=== PATIENT | female | born 1980 | race Caucasian/White ===

== ENCOUNTER → 2017-10-26 | Outpatient (CLI) | payer OTHER ==
--- NOTE | 2017-11-05 10:44 | MR ---
EXAMINATION TYPE: MR pituitary wo/w con DATE OF EXAM: 10/26/2017 COMPARISON: Outside brain MRI January 24, 2014 HISTORY: Mass TECHNIQUE: Multiplanar, multisequence images of the brain and brainstem is performed without and with IV contras t, utilizing 10 mL intravenous Gadavist . Pituitary gland protocol. FINDINGS: Pituitary gland is not suspiciously enlarged in sella turcica. There is slightly prominent concave superior margin redemonstrated. The pituitary stalk shows normal enhancement in the midline. Postcontrast images show fairly heterogeneous enhancement without area of nonenhancement to suggest m icroadenoma. Craniocervical junction is unremarkable. No gross hydrocephalus is seen. Normal vascular flow voids a re identified. IMPRESSION: No convincing MRI evidence for pituitary micro or macroadenoma. No significant change fro m prior.
== END | disposition home or self-care (01) ==
LOC: RADMRIMAIN 08:48
PROVIDERS: ATTEND Family Medicine
DX: R22.0 Localized swelling, mass and lump, head (principal)
CPT/HCPCS: 70553; A9581

== ENCOUNTER → 2018-01-01 | Outpatient (CLI) | payer OTHER ==
--- NOTE | 2018-01-01 15:20 | US ---
EXAMINATION TYPE: US pelvis complete transvag DATE OF EXAM: 01/01/2018 COMPARISON: US 2016 CLINICAL HISTORY: Pelvic Pain R10.2. Pelvic pain x couple weeks, 2, para 2, history of c-sect ion TECHNIQUE: . Transabdominal sonographic images of the pelvis were acquired. Transvaginal sonographi c images were medically necessary to better assess the following anatomy: left ovary Date of LMP: 12/15/2017 EXAM MEASUREMENTS: Uterus: 12.1 x 5.3 x 5.4 cm Endometrial Stripe: 0.9 cm Right Ovary: 4.0 x 2.6 x 2.8 cm Left Ovary: not seen Difficult and limited transvaginal images due to uterus size and position and overlying bowel gas 1. Uterus: retroverted, enlarged, heterogeneous, multiple nabothian cysts 2. Endometrium: wnl for patient's LMP 3. Right Ovary: wnl 4. Left Ovary: not seen due to overlying bowel gas 5. Bilateral Adnexa: wnl 6. Posterior cul-de-sac: wnl IMPRESSION: 1. Uterus is enlarged however distinct mass is not appreciated.
== END | disposition home or self-care (01) ==
LOC: RADUSWWP 14:09
PROVIDERS: ATTEND Obstetrics & Gynecology
DX: R10.2 Pelvic and perineal pain (principal)
CPT/HCPCS: 76830; 76856

== ENCOUNTER 2018-04-25 13:04 | Emergency (ER) | payer OTHER ==
[2018-04-25] MEDS ORDERED: SODIUM CHLORIDE 0.9% 1,000 ML IV STA (14:07)
--- NOTE | 2018-04-25 14:25 | ED ---
Abdominal Pain HPI - General Chief Complaint: Abdominal Pain Stated Complaint: RUQ pain Time Seen by Provider: 04/25/18 13:49 Source: patient, RN notes reviewed, old records reviewed Mode of arrival: ambulatory Limitations: no limitations - History of Present Illness Initial Comments: 37-year-old female presents research it went of right-sided abdominal pain epigastric and more belching or the past 2 weeks. Prior to that she's been having more diarrhea. Today in this week the pain seems to be worse. Patient states that she has had no chest pain or shortness of breath. No changes in urination. - Related Data Home Medications Medication Instructions Recorded Confirmed Ibuprofen [Motrin] 800 mg PO Q6H PRN 04/25/18 04/25/18 Kariva 1 tab PO DAILY 04/25/18 04/25/18 Triamcinolone 0.1% Cream [Kenalog] 1 applicatio TOPICAL BID PRN 04/25/18 Previous Rx's Medication Instructions Recorded Famotidine [Pepcid] 20 mg PO HS #20 tablet 04/25/18 Allergies Allergy/AdvReac Type Severity Reaction Status Date / Time ciprofloxacin [From Cipro] Allergy Unknown Verified 04/25/18 14:14 Penicillins Allergy Nausea & Verified 04/25/18 14:14 Vomiting & Diarrhea prednisone Allergy Unknown Verified 04/25/18 14:14 Sulfa (Sulfonamide Allergy Rash/Hives Verified 04/25/18 14:14 Antibiotics) Review of Systems ROS Statement: Those systems with pertinent positive or pertinent negative responses have been documented in the HPI. ROS Other: All systems not noted in ROS Statement are negative. Past Medical History Additional Past Medical History / Comment(s): connective tissue disorder, pituitary mass, chronic back pain History of Any Multi-Drug Resistant Organisms: None Reported Past Surgical History: Section Past Psychological History: No Psychological Hx Reported Smoking Status: Never smoker Past Alcohol Use History: None Reported Past Drug Use History: None Reported General Exam - General Exam Comments Initial Comments: Well appearing 37 year old female no distress. Limitations: no limitations Head exam: Present: atraumatic, normocephalic, normal inspection ENT exam: Present: normal exam, mucous membranes moist Neck exam: Present: normal inspection. Absent: tenderness, meningismus, lymphadenopathy Respiratory exam: Present: normal lung sounds bilaterally. Absent: respiratory distress, wheezes, rales, rhonchi, stridor Cardiovascular Exam: Present: regular rate, normal rhythm, normal heart sounds. Absent: systolic murmur, diastolic murmur, rubs, gallop, clicks GI/Abdominal exam: Present: soft, tenderness (RUQ tenderness), normal bowel sounds. Absent: distended, guarding, rebound, rigid Extremities exam: Present: normal inspection, full ROM, normal capillary refill. Absent: tenderness, pedal edema, joint swelling, calf tenderness Back exam: Present: normal inspection Neurological exam: Present: alert, oriented X3, CN II-XII intact Psychiatric exam: Present: normal affect, normal mood Course Vital Signs 04/25/18 04/25/18 04/25/18 13:24 15:51 16:54 Temperature 98.2 F 98.5 F Pulse Rate 77 68 77 Respiratory 20 16 16 Rate Blood Pressure 139/84 131/77 142/86 O2 Sat by Pulse 96 98 97 Oximetry - Reevaluation(s) Reevaluation #1: 04/25/18 15:47 Informed of the normal lab results besides hematuria. Discussed concern for kidney stone. CT abdomen and pelvis will be completed. She continues to refuse pain medication. Medical Decision Making - Medical Decision Making 37-year-old female presents research it went of right-sided abdominal pain epigastric and more belching or the past 2 weeks. Prior to that she's been having more diarrhea. PAtient was given fluids and lab work, she refused pain medication. Labs were showing hematuria, no LFT changes. Normal amylase and lipase. Gall bladder US is negative. Concern for hematuria, if paient pain is related to nephrolithiasis. Patient underwent CT abdomen and pelvis without contrast, negative for acute disease. At this time I believe patient pain may still be gallbladder related, and she may need a HIDA scan. Discussed PCP and GI follow up. - Lab Data Result diagrams: 04/25/18 13:45 04/25/18 13:45 Lab Results 04/25/18 04/25/18 04/25/18 Range/Units 13:45 13:45 13:45 WBC 5.7 (3.8-10.6) k/uL RBC 4.89 (3.80-5.40) m/uL Hgb 14.9 (11.4-16.0) gm/dL Hct 43.1 (34.0-46.0) % MCV 88.3 (80.0-100.0) fL MCH 30.5 (25.0-35.0) pg MCHC 34.5 (31.0-37.0) g/dL RDW 12.7 (11.5-15.5) % Plt Count 311 (150-450) k/uL Neutrophils % 69 % Lymphocytes % 21 % Monocytes % 6 % Eosinophils % 2 % Basophils % 1 % Neutrophils # 3.9 (1.3-7.7) k/uL Lymphocytes # 1.2 (1.0-4.8) k/uL Monocytes # 0.3 (0-1.0) k/uL Eosinophils # 0.1 (0-0.7) k/uL Basophils # 0.0 (0-0.2) k/uL PT 9.7 (9.0-12.0) sec INR 1.0 (<1.2) APTT 22.2 (22.0-30.0) sec Sodium 141 (137-145) mmol/L Potassium 4.0 (3.5-5.1) mmol/L Chloride 108 H (98-107) mmol/L Carbon Dioxide 20 L (22-30) mmol/L Anion Gap 13 mmol/L BUN 10 (7-17) mg/dL Creatinine 0.75 (0.52-1.04) mg/dL Est GFR (CKD-EPI)AfAm >90 (>60 ml/min/1.73 sqM) Est GFR (CKD-EPI)NonAf >90 (>60 ml/min/1.73 sqM) Glucose 93 (74-99) mg/dL Calcium 10.0 (8.4-10.2) mg/dL Total Bilirubin 0.3 (0.2-1.3) mg/dL AST 18 (14-36) U/L ALT 26 (9-52) U/L Alkaline Phosphatase 56 (38-126) U/L Total Protein 7.2 (6.3-8.2) g/dL Albumin 4.4 (3.5-5.0) g/dL Amylase 70 (30-110) U/L Lipase 153 (23-300) U/L Urine Color Urine Appearance (Clear) Urine pH (5.0-8.0) Ur Specific [place] (1.001-1.035) Urine Protein (Negative) Urine Glucose (UA) (Negative) Urine Ketones (Negative) Urine Blood (Negative) Urine Nitrite (Negative) Urine Bilirubin (Negative) Urine Urobilinogen (<2.0) mg/dL Ur Leukocyte Esterase (Negative) Urine RBC (0-5) /hpf Urine WBC (0-5) /hpf Ur Squamous Epith Cells (0-4) /hpf Urine Bacteria (None) /hpf Urine Mucus (None) /hpf 04/25/18 Range/Units 13:46 WBC (3.8-10.6) k/uL RBC (3.80-5.40) m/uL Hgb (11.4-16.0) gm/dL Hct (34.0-46.0) % MCV (80.0-100.0) fL MCH (25.0-35.0) pg MCHC (31.0-37.0) g/dL RDW (11.5-15.5) % Plt Count (150-450) k/uL Neutrophils % % Lymphocytes % % Monocytes % % Eosinophils % % Basophils % % Neutrophils # (1.3-7.7) k/uL Lymphocytes # (1.0-4.8) k/uL Monocytes # (0-1.0) k/uL Eosinophils # (0-0.7) k/uL Basophils # (0-0.2) k/uL PT (9.0-12.0) sec INR (<1.2) APTT (22.0-30.0) sec Sodium (137-145) mmol/L Potassium (3.5-5.1) mmol/L Chloride (98-107) mmol/L Carbon Dioxide (22-30) mmol/L Anion Gap mmol/L BUN (7-17) mg/dL Creatinine (0.52-1.04) mg/dL Est GFR (CKD-EPI)AfAm (>60 ml/min/1.73 sqM) Est GFR (CKD-EPI)NonAf (>60 ml/min/1.73 sqM) Glucose (74-99) mg/dL Calcium (8.4-10.2) mg/dL Total Bilirubin (0.2-1.3) mg/dL AST (14-36) U/L ALT (9-52) U/L Alkaline Phosphatase (38-126) U/L Total Protein (6.3-8.2) g/dL Albumin (3.5-5.0) g/dL Amylase (30-110) U/L Lipase (23-300) U/L Urine Color Light Yellow Urine Appearance Clear (Clear) Urine pH 6.0 (5.0-8.0) Ur Specific [place] 1.012 (1.001-1.035) Urine Protein Negative (Negative) Urine Glucose (UA) Negative (Negative) Urine Ketones Negative (Negative) Urine Blood Trace H (Negative) Urine Nitrite Negative (Negative) Urine Bilirubin Negative (Negative) Urine Urobilinogen <2.0 (<2.0) mg/dL Ur Leukocyte Esterase Negative (Negative) Urine RBC 3 (0-5) /hpf Urine WBC 2 (0-5) /hpf Ur Squamous Epith Cells 1 (0-4) /hpf Urine Bacteria Occasional H (None) /hpf Urine Mucus Rare H (None) /hpf - Radiology Data Radiology results: report reviewed No renal stones or hydronephrosis seen bilaterally. I can't trust study shows no signs or to account for patient symptoms. US gallbladder and liver are negative for acute disease. Disposition Clinical Impression: RUQ pain, Microscopic hematuria Disposition: HOME SELF-CARE Condition: Good Instructions: Abdominal Pain (ED) Additional Instructions: Patient advised follow-up with primary care provider and GI specialist. Return to emergency department if any alarming signs or symptoms occur. Prescriptions: Famotidine [Pepcid] 20 mg PO HS #20 tablet Is patient prescribed a controlled substance at d/c from ED?: No When asked, does pt state using other controlled substances?: No If prescribed controlled substance>3 days was MAPS reviewed?: No If opioid is for acute pain is fill amount 7 days or less?: No If Rx opioid, was Start Talking consent form obtained?: No Referrals: Theo Garrett MD [STAFF PHYSICIAN] - 1-2 days None,Stated [Primary Care Provider] - 1-2 days Ludmila Ayala MD [STAFF PHYSICIAN] - 1-2 days Time of Disposition: 16:42
[2018-04-25 14:41] LABS: Basophils % (A) 1 %; Eosinophils # (A) 0.1 k/uL (0-0.7); Eosinophils % (A) 2 %; HCT 43.1 % (34.0-46.0); HGB 14.9 gm/dL (11.4-16.0); Lymphocytes # (A) 1.2 k/uL (1.0-4.8); Lymphocytes % (A) 21 %; MCH 30.5 pg (25.0-35.0); MCHC 34.5 g/dL (31.0-37.0); MCV 88.3 fL (80.0-100.0); Mean Platelet Volume 6.9; Monocytes # (A) 0.3 k/uL (0-1.0); Monocytes % (A) 6 %; Neutrophils # (A) 3.9 k/uL (1.3-7.7); Neutrophils % (A) 69 %; Platelet Count 311 k/uL (150-450); RBC 4.89 m/uL (3.80-5.40); RDW 12.7 % (11.5-15.5); WBC 5.7 k/uL (3.8-10.6)
[2018-04-25 14:44] LABS: Appearance,Urine Clear (Clear); Bacteria,Urine Occasional /hpf; Bilirubin,Urine Negative (Negative); Blood,Urine Trace (Negative); Color,Urine Light Yellow; Glucose,Urine (UA) Negative (Negative); Ketones,Urine Negative (Negative); Leukocyte Esterase,Urine Negative (Negative); Mucus,Urine Rare /hpf; Nitrite,Urine Negative (Negative); Protein,Urine Negative (Negative); RBC,Urine 3 /hpf (0-5); Specific Gravity,Urine 1.012 (1.001-1.035); Squamous Epithelial Cell,Urine 1 /hpf (0-4); Urobilinogen,Urine <2.0 mg/dL (<2.0); WBC,Urine 2 /hpf (0-5)
[2018-04-25 14:53] LABS: ALT 26 U/L (9-52); AST 18 U/L (14-36); Albumin 4.4 g/dL (3.5-5.0); Alkaline Phosphatase 56 U/L (38-126); Amylase 70 U/L (30-110); Anion Gap 13 mmol/L; Blood Urea Nitrogen 10 mg/dL (7-17); Carbon Dioxide 20 mmol/L (22-30); Chloride 108 mmol/L (98-107); Glucose 93 mg/dL (74-99); Lipase 153 U/L (23-300); Partial Thromboplastin Time 22.2 sec (22.0-30.0); Prothrombin Time 9.7 sec (9.0-12.0); Sodium 141 mmol/L (137-145); Total Bilirubin 0.3 mg/dL (0.2-1.3); Total Protein 7.2 g/dL (6.3-8.2)
--- NOTE | 2018-04-25 15:08 | US ---
EXAMINATION TYPE: US gallbladder DATE OF EXAM: 04/25/2018 COMPARISON: NONE CLINICAL HISTORY: Pain. Right upper back pain x 1 week, diarrhea EXAM MEASUREMENTS: Liver Length: 14.8 cm Gallbladder Wall: 0.3 cm CBD: 0.5 cm Right Kidney: 10.5 x 4.8 x 5.6 cm Pancreas: obscured by overlying midline bowel gas Liver: wnl Gallbladder: May be mildly contracted (patient NPO less than 5 hours), wall measures in upper limits of normal, no stones seen. Evidence for sonographic Infante's sign: yes CBD: visualized portions wnl, limited by overlying bowel gas Right Kidney: wnl IMPRESSION: 1. Right upper quadrant ultrasound is within normal limits.
[2018-04-25 15:52] VITALS: RESP 16
--- NOTE | 2018-04-25 16:31 | CT ---
EXAMINATION TYPE: CT abdomen pelvis wo con DATE OF EXAM: 04/25/2018 HISTORY: Pain under right ribs x [address] DLP: 1061 mGycm. Automated Exposure Control for Dose Reduction was Utilized. TECHNIQUE: CT scan of the abdomen and pelvis is performed without oral or IV contrast. COMPARISON: Same day gallbladder ultrasound FINDINGS: Within the limitations of a non-contrast study, the following observations are made. LUNG BASES: Is patchy bibasilar linear scarring and/or atelectasis posteriorly in both bases. LIVER/GB: No significant abnormality is appreciated. PANCREAS: No significant abnormality is seen. SPLEEN: No significant abnormality is seen. ADRENALS: No significant abnormality is seen. KIDNEYS: No renal stones or hydronephrosis is present bilaterally. BOWEL: Normal-appearing appendix is seen from cecum. GENITAL ORGANS: Anteverted uterus is seen. Both ovaries are normal in size. LYMPH NODES: No greater than 1cm abdominal or pelvic lymph nodes are appreciated. OSSEOUS STRUCTURES: No significant abnormality is seen. OTHER: No significant additional abnormality is seen. IMPRESSION: No renal stones or hydronephrosis is seen bilaterally. No acute finding identified on non contrast study to account for patient's symptoms.
[2018-04-25 16:54] VITALS: BP 142/86; PULSE 77; TEMP 98.5
== END 2018-04-25 16:59 | disposition home or self-care (01) ==
LOC: EC 13:04
DX: R31.29 Other microscopic hematuria (principal); R10.11 Right upper quadrant pain; R10.13 Epigastric pain; R19.7 Diarrhea, unspecified; Z79.3 Long term (current) use of hormonal contraceptives; Z88.0 Allergy status to penicillin; Z88.1 Allergy status to other antibiotic agents; Z88.2 Allergy status to sulfonamides; Z88.8 Allergy status to other drugs, medicaments and biological substances
CPT/HCPCS: 36415; 74176; 76705; 80053; 81001; 82150; 83690; 85025; 85610; 85730; 87086; 96360; 96361; 99284

== ENCOUNTER → 2018-07-24 | Outpatient (CLI) | payer OTHER ==
[2018-07-24 17:52] LABS: Appearance,Urine Clear (Clear); Bacteria,Urine Rare /hpf; Bilirubin,Urine Negative (Negative); Blood,Urine Small (Negative); Color,Urine Yellow; Glucose,Urine (UA) Negative (Negative); Ketones,Urine Negative (Negative); Leukocyte Esterase,Urine Negative (Negative); Mucus,Urine Rare /hpf; Nitrite,Urine Negative (Negative); Protein,Urine Negative (Negative); RBC,Urine 2 /hpf (0-5); Specific Gravity,Urine 1.019 (1.001-1.035); Squamous Epithelial Cell,Urine 1 /hpf (0-4); Urobilinogen,Urine <2.0 mg/dL (<2.0); WBC,Urine 3 /hpf (0-5)
== END | disposition home or self-care (01) ==
LOC: LABWHC1 16:46
PROVIDERS: ATTEND Obstetrics & Gynecology
DX: R30.0 Dysuria (principal)
CPT/HCPCS: 81001; 87086

== ENCOUNTER → 2018-11-28 | Outpatient (CLI) | payer OTHER ==
[2018-11-28 11:33] LABS: Basophils % (A) 1 %; Eosinophils # (A) 0.1 k/uL (0-0.7); Eosinophils % (A) 1 %; HCT 44.7 % (34.0-46.0); HGB 14.8 gm/dL (11.4-16.0); Lymphocytes # (A) 1.2 k/uL (1.0-4.8); Lymphocytes % (A) 24 %; MCH 30.3 pg (25.0-35.0); MCHC 33.1 g/dL (31.0-37.0); MCV 91.5 fL (80.0-100.0); Mean Platelet Volume 6.8; Monocytes # (A) 0.2 k/uL (0-1.0); Monocytes % (A) 4 %; Neutrophils # (A) 3.5 k/uL (1.3-7.7); Neutrophils % (A) 68 %; Platelet Count 290 k/uL (150-450); RBC 4.89 m/uL (3.80-5.40); RDW 12.9 % (11.5-15.5); WBC 5.2 k/uL (3.8-10.6)
[2018-11-28 16:14] LABS: Albumin 4.5 g/dL (3.80-4.90); Albumin/Globulin Ratio 1.73 (1.20-2.10); Anion Gap 10.3 mmol/L (4.00-12.00); C Reactive Protein 2.4 mg/dL (0.0-0.8); Carbon Dioxide 23.7 mmol/L (21.6-31.8); Globulin 2.6 g/dL (1.6-3.3); Potassium 4.3 mmol/L (3.5-5.5); Total Bilirubin 0.4 mg/dL (0.3-1.2); Total Protein 7.1 g/dL (6.2-8.2)
== END ==
LOC: LABWHC1 10:40
PROVIDERS: ATTEND Family Medicine
DX: Z00.00 Encounter for general adult medical examination without abnormal findings (principal); F43.10 Post-traumatic stress disorder, unspecified; R10.84 Generalized abdominal pain
CPT/HCPCS: 36415; 80053; 80061; 82306; 84443; 85025; 86140

== ENCOUNTER → 2018-12-12 | Outpatient (CLI) | payer OTHER ==
--- NOTE | 2018-12-15 13:34 | MM ---
Reason for exam: screening (asymptomatic). Last mammogram was performed 3 years and 2 months ago. Physical Findings: A clinical breast exam by your physician is recommended on an annual basis and results should be correlated with mammographic findings. MG 3D Screening Mammo W/Cad Bilateral CC and MLO view(s) were taken. Prior study comparison: October 18, 2015, bilateral MG 3d diag mammo w/cad [facility]. The breast tissue is heterogeneously dense. This may lower the sensitivity of mammography. Stable benign calcifications. There is no discrete abnormality. No significant changes when compared with prior studies. ASSESSMENT: Benign, BI-RAD 2 RECOMMENDATION: Routine screening mammogram of both breasts in 1 year.
== END ==
LOC: RADMAMWWP 12:00
PROVIDERS: ATTEND Family Medicine
DX: Z12.31 Encounter for screening mammogram for malignant neoplasm of breast (principal)
CPT/HCPCS: 77063; 77067

== ENCOUNTER → 2018-12-12 | Outpatient (CLI) | payer OTHER ==
--- NOTE | 2018-12-12 12:37 | FL ---
EXAMINATION TYPE: FL UGI w esophagus DATE OF EXAM: 12/12/2018 COMPARISON: CT abdomen and pelvis dated 04/25/2018 HISTORY: Abdominal pain for 2 to 3 months. Pain occurs both immediately after eating sometimes 2 to 4 hours after eating. TECHNIQUE: A double contrast UGI study is performed. 2 minutes and 9 seconds of fluoroscopy time was utilized with 55 fluoroscopic images saved. 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 The esophagus shows normal motility and emptying into the stomach. No evidence of hiatal hernia or s tricture noted. The stomach shows normal distensibility, peristalsis, and mucosal folds. No evidence of any mass or ulcer disease. Mild gastroesophageal reflux was seen during real time performance of this study to th e level of distal third of the esophagus. The duodenal bulb, sweep, and proximal small bowel loops are unremarkable. IMPRESSION: 1. Mild degree gastroesophageal reflux to the level of the distal third of the esophagus. 2. No radiographic evidence of gastritis, duodenitis, gastric ulcer, nor duodenal ulcer.
== END | disposition home or self-care (01) ==
LOC: RADFLWHC 11:03
PROVIDERS: ATTEND Family Medicine
DX: K21.9 Gastro-esophageal reflux disease without esophagitis (principal); R10.84 Generalized abdominal pain
CPT/HCPCS: 74240

== ENCOUNTER 2019-01-15 18:13 | Emergency (ER) | payer OTHER ==
[2019-01-15 18:35] VITALS: BP 146/94; RESP 18; TEMP 98.4
[2019-01-15] MEDS ORDERED: IPRATROPIUM-ALBUTEROL 3 ML NEB INHALATION STA (18:40)
--- NOTE | 2019-01-15 19:07 | XR ---
EXAMINATION TYPE: XR chest 2V DATE OF EXAM: 01/15/2019 COMPARISON: NONE HISTORY: Cough and congestion TECHNIQUE: Frontal and lateral views of the chest are obtained. FINDINGS: Heart and mediastinum are normal. Lungs are clear. Diaphragm is normal. Bony thorax appear s normal. IMPRESSION: Normal chest
[2019-01-15 19:15] VITALS: PULSE 96
--- NOTE | 2019-01-15 19:16 | ED ---
URI HPI - General Chief Complaint: Upper Respiratory Infection Stated Complaint: flu/SOB Time Seen by Provider: 01/15/19 18:28 Source: patient, RN notes reviewed Mode of arrival: ambulatory Limitations: no limitations - History of Present Illness Initial Comments: 38-year-old female presents emergency Department chief complaint cough congestion shortness breath. Patient states she has not felt well for last few days still weak. Patient states she is achy. Patient concerned she may have pneumonia as she has had a history. Patient reports fever intermittently. No recent Tylenol Motrin. Patient does have underlying asthma. Patient denies chest pain, headache, dizziness, neck pain, neck stiffness. Patient's had no recent nausea vomiting diarrhea constipation. - Related Data Home Medications Medication Instructions Recorded Confirmed Ibuprofen [Motrin] 800 mg PO Q6H PRN 04/25/18 01/15/19 Kariva 1 tab PO DAILY 04/25/18 01/15/19 Albuterol Nebulized [Ventolin 2.5 mg INHALATION RT-Q6H PRN 01/15/19 01/15/19 Nebulized] Ergocalciferol [Vitamin D2] 50,000 unit PO Q30D 01/15/19 01/15/19 Allergies Allergy/AdvReac Type Severity Reaction Status Date / Time ciprofloxacin [From Cipro] Allergy Unknown Verified 01/15/19 18:39 prednisone Allergy Unknown Verified 01/15/19 18:39 Sulfa (Sulfonamide Allergy Rash/Hives Verified 01/15/19 18:39 Antibiotics) sulfamethoxazole Allergy Rash/Hives Verified 01/15/19 18:39 [From Bactrim] trimethoprim [From Bactrim] Allergy Rash/Hives Verified 01/15/19 18:39 Penicillins AdvReac Nausea & Verified 01/15/19 18:39 Vomiting & Diarrhea Review of Systems ROS Statement: Those systems with pertinent positive or pertinent negative responses have been documented in the HPI. ROS Other: All systems not noted in ROS Statement are negative. Past Medical History Additional Past Medical History / Comment(s): connective tissue disorder, pituitary mass, chronic back pain History of Any Multi-Drug Resistant Organisms: MRSA Date of last positivie culture/infection: 2019 MDRO Source:: ears Past Surgical History: Section Past Psychological History: Anxiety, PTSD Smoking Status: Never smoker Past Alcohol Use History: None Reported Past Drug Use History: None Reported General Exam Limitations: no limitations General appearance: alert, in no apparent distress Head exam: Present: atraumatic, normocephalic, normal inspection Eye exam: Present: normal appearance, PERRL, EOMI. Absent: scleral icterus, conjunctival injection, periorbital swelling ENT exam: Present: normal exam, normal oropharynx, mucous membranes moist, TM's normal bilaterally, normal external ear exam Neck exam: Present: normal inspection, full ROM. Absent: tenderness, meningismus, lymphadenopathy Respiratory exam: Present: normal lung sounds bilaterally. Absent: respiratory distress, wheezes, rales, rhonchi, stridor Cardiovascular Exam: Present: normal rhythm, tachycardia, normal heart sounds. Absent: systolic murmur, diastolic murmur, rubs, gallop, clicks GI/Abdominal exam: Present: soft, normal bowel sounds. Absent: distended, tenderness, guarding, rebound, rigid Course Vital Signs 01/15/19 01/15/19 18:33 19:03 Temperature 98.4 F Pulse Rate 107 H 94 Respiratory 18 18 Rate Blood Pressure 146/94 O2 Sat by Pulse 96 Oximetry Medical Decision Making - Medical Decision Making 38-year-old female presented for URI symptoms. Patient had chest x-ray which is unremarkable. Patient is influenza B-positive. Patient will be discharged with supportive treatment return parameters were discussed. - Lab Data Lab Results 01/15/19 Range/Units 18:42 Influenza Type A RNA Not Detected (Not Detectd) Influenza Type B (PCR) Detected H (Not Detectd) Disposition Clinical Impression: Influenza B Disposition: HOME SELF-CARE Condition: Stable Instructions (If sedation given, give patient instructions): Influenza (ED) Additional Instructions: Please return to the Emergency Department if symptoms worsen or any other concerns. Is patient prescribed a controlled substance at d/c from ED?: No Referrals: Flip Everett MD [Primary Care Provider] - 1-2 days Time of Disposition: 19:16
== END 2019-01-15 19:25 | disposition home or self-care (01) ==
LOC: EC 18:13
DX: J10.1 Influenza due to other identified influenza virus with other respiratory manifestations (principal); J45.909 Unspecified asthma, uncomplicated; Z86.14 Personal history of Methicillin resistant Staphylococcus aureus infection; Z79.3 Long term (current) use of hormonal contraceptives; Z88.1 Allergy status to other antibiotic agents; Z88.8 Allergy status to other drugs, medicaments and biological substances; Z88.2 Allergy status to sulfonamides; Z88.0 Allergy status to penicillin
CPT/HCPCS: 71046; 87502; 94640; 99285

== ENCOUNTER → 2019-12-11 | Outpatient (CLI) | payer OTHER ==
--- NOTE | 2019-12-11 11:36 | MR ---
PRE AND POSTCONTRAST ENHANCED MRI OF THE BRAIN: CLINICAL HISTORY: Headaches CONTRAST: 9.5 mL gadavist Multiplanar and multispin-echo imaging of the brain was performed both before and after the administr ation of contrast. The ventricles, basal cisterns and sulci overlying the cerebral convexities are within normal limits. There is no evidence for midline shift or mass effect. Acute intracranial hemorrhage or extra-axial collection is not evident. There are no abnormal areas of increased or decreased signal intensity within the brain parenchyma. Following contrast administration, there is no evidence for pathologic enhancement or enhancing mass. The paranasal sinuses and mastoid air cells are well-aerated. IMPRESSION: Unremarkable pre and postcontrast enhanced MRI of the brain.
== END | disposition home or self-care (01) ==
LOC: RADMRIMAIN 05:44
PROVIDERS: ATTEND Ophthalmology
DX: H46.03 Optic papillitis, bilateral (principal)
CPT/HCPCS: 70553; A9585

== ENCOUNTER 2022-04-13 15:41 | Emergency (ER) | payer OTHER ==
[2022-04-13] MEDS ORDERED: MORPHINE SULFATE 4 MG/ML SYRINGE IV STA (19:35)
[2022-04-13] MEDS ORDERED: ONDANSETRON 4 MG/2 ML VIAL IVP STA (19:35)
[2022-04-13] MEDS ORDERED: SODIUM CHLORIDE 0.9% 1,000 ML IV ONE (19:36)
--- NOTE | 2022-04-13 19:43 | ED ---
General Adult HPI - General Chief complaint: Extremity Injury, Upper Stated complaint: Rt Sided Pain,Cough,Weakness Time Seen by Provider: 04/13/22 19:25 Source: patient, RN notes reviewed Mode of arrival: ambulatory Limitations: no limitations - History of Present Illness Initial comments: This is a pleasant 41-year-old female with a history of autoimmune connective tissue disorder. Patient presents to the emergency department complaining of worsening pain in her right arm as well as multiple other complaints. She states she was diagnosed with superficial thrombophlebitis at the [facility] in December after having an MRI and MRV of her brain. Patient believes that he injected her to fast with contrast agent. Patient was told to take anti-inflammatory medication. However she states that over the past several days she has had increasing pain to the right arm. She is actually states his pain is been going on intermittently since December. Patient also complaining of mid low back pain which she states she gets from time to time. Patient states she has swelling in her brain cannot figure out why. Patient does have a specialist at [facility] if she sees for this. Patient states she previously had viral meningitis at least some of these symptoms are similar. She is denying any neck stiffness. Patient states she has a chronic swollen lymph node to her right neck with chronic right neck pain. POSITIVE headache, no fever or chills, no changes in vision or hearing, no sore throat or difficulty with speech, no neck pain, no chest pain or shortness of breath, no abdominal pain, no nausea or vomiting, no changes in urination or bowel movements, no numbness or tingling, no skin rashes or lesions. - Related Data Home Medications Medication Instructions Recorded Confirmed Kariva 1 tab PO DAILY 04/25/18 04/13/22 Tobramycin/Dexamethasone [Tobradex 4 - 5 drop BOTH EARS BID 04/13/22 04/13/22 Ophth Susp] Allergies Allergy/AdvReac Type Severity Reaction Status Date / Time ciprofloxacin [From Cipro] Allergy Unknown Verified 04/13/22 21:22 prednisone Allergy Unknown Verified 04/13/22 21:22 Quinolones Allergy Rash/Hives Verified 04/13/22 21:22 Sulfa (Sulfonamide Allergy Rash/Hives Verified 04/13/22 21:22 Antibiotics) sulfamethoxazole Allergy Rash/Hives Verified 04/13/22 21:22 [From Bactrim] trimethoprim [From Bactrim] Allergy Rash/Hives Verified 04/13/22 21:22 Penicillins AdvReac Itching/Hiv Verified 04/13/22 21:22 es/Vomiting /Headache Review of Systems ROS Statement: Those systems with pertinent positive or pertinent negative responses have been documented in the HPI. ROS Other: All systems not noted in ROS Statement are negative. Past Medical History Additional Past Medical History / Comment(s): connective tissue disorder, pituitary mass, chronic back pain History of Any Multi-Drug Resistant Organisms: MRSA Date of last positivie culture/infection: 2019 MDRO Source:: ears Past Surgical History: Section Past Psychological History: Anxiety, PTSD Smoking Status: Never smoker Past Alcohol Use History: None Reported Past Drug Use History: None Reported General Exam - General Exam Comments Initial Comments: Patient does not appear to be ill or toxic. Patient mild distress. Vital signs reviewed, patient afebrile. Cranial nerves II through XII grossly intact. Limitations: no limitations General appearance: alert, in no apparent distress Head exam: Present: atraumatic, normocephalic, normal inspection Eye exam: Present: normal appearance, PERRL, EOMI. Absent: scleral icterus, conjunctival injection, periorbital swelling ENT exam: Present: normal exam, normal oropharynx, mucous membranes moist, normal external ear exam Neck exam: Present: normal inspection, full ROM, lymphadenopathy (Nontender ri ght anterior cervical lymphadenopathy), other (No meningeal signs). Absent: tenderness, meningismus, thyromegaly Respiratory exam: Present: normal lung sounds bilaterally, chest wall tenderness. Absent: respiratory distress, wheezes, rales, rhonchi, stridor, accessory muscle use, decreased breath sounds, prolonged expiratory Cardiovascular Exam: Present: regular rate, normal rhythm, normal heart sounds. Absent: systolic murmur, diastolic murmur, rubs, gallop, clicks GI/Abdominal exam: Present: soft, normal bowel sounds. Absent: distended, tenderness, guarding, rebound, rigid Extremities exam: Present: normal inspection, full ROM, normal capillary refill. Absent: tenderness, pedal edema, joint swelling, calf tenderness Back exam: Present: normal inspection Neurological exam: Present: alert, oriented X3, CN II-XII intact, normal gait. Absent: altered, motor sensory deficit Psychiatric exam: Present: normal affect, anxious. Absent: homicidal ideation, suicidal ideation Skin exam: Present: warm, dry, intact, normal color. Absent: rash Course Vital Signs 04/13/22 04/13/22 16:09 20:14 Temperature 99.2 F 99.8 F H Pulse Rate 113 H 104 H Respiratory 18 16 Rate Blood Pressure 159/95 157/90 O2 Sat by Pulse 98 97 Oximetry - Reevaluation(s) Reevaluation #1: 04/13/22 21:28 Patient reevaluated and is resting comfortably in the room. Patient in no significant distress. Patient is noted have a dry cough. Patient states that she's been coughing for several weeks. We'll add on a COVID-[address] a of the chest for elevated d-dimer is ordered. EKG Findings - EKG Comments: EKG Findings:: EKG done at 2126 ED attending physician reveals sinus rhythm with a rate of 80. Normal intervals. Some poor R-wave progression noted. Normal axis. No acute ST or T-wave changes. Low QRS voltage. Medical Decision Making - Medical Decision Making His main complaint is worsening right arm pain. Patient had superficial thrombophlebitis in December. Patient denying any erythema or significant swelling states that the pains going from her forearm all the way up to her shoulder area. Also complaining of acute exacerbation of chronic back pain. - Lab Data Result diagrams: 04/13/22 19:51 04/13/22 19:51 Lab Results 04/13/22 04/13/22 04/13/22 Range/Units 19:51 19:51 19:51 WBC 5.3 (3.8-10.6) k/uL RBC 4.57 (3.80-5.40) m/uL Hgb 14.2 (11.4-16.0) gm/dL Hct 41.6 (34.0-46.0) % MCV 91.2 (80.0-100.0) fL MCH 31.2 (25.0-35.0) pg MCHC 34.2 (31.0-37.0) g/dL RDW 12.9 (11.5-15.5) % Plt Count 268 (150-450) k/uL MPV 7.1 Neutrophils % 82 % Lymphocytes % 8 % Monocytes % 6 % Eosinophils % 2 % Basophils % 1 % Neutrophils # 4.3 (1.3-7.7) k/uL Lymphocytes # 0.4 L (1.0-4.8) k/uL Monocytes # 0.3 (0-1.0) k/uL Eosinophils # 0.1 (0-0.7) k/uL Basophils # 0.0 (0-0.2) k/uL ESR 11 (0-20) mm/hr PT 10.4 (9.0-12.0) sec INR 0.9 (<1.2) APTT 23.5 (22.0-30.0) sec D-Dimer 0.60 H (<0.60) mg/L FEU Sodium 135 L (137-145) mmol/L Potassium 3.9 (3.5-5.1) mmol/L Chloride 105 (98-107) mmol/L Carbon Dioxide 23 (22-30) mmol/L Anion Gap 7 mmol/L BUN 10 (7-17) mg/dL Creatinine 0.89 (0.52-1.04) mg/dL Est GFR (CKD-EPI)AfAm >90 (>60 ml/min/1.73 sqM) Est GFR (CKD-EPI)NonAf 80 (>60 ml/min/1.73 sqM) Glucose 93 (74-99) mg/dL Plasma Lactic Acid Abdullahi (0.7-2.0) mmol/L Calcium 9.6 (8.4-10.2) mg/dL Magnesium 2.1 (1.6-2.3) mg/dL Total Bilirubin 0.4 (0.2-1.3) mg/dL AST 21 (14-36) U/L ALT 13 (4-34) U/L Alkaline Phosphatase 56 (38-126) U/L Troponin I (0.000-0.034) ng/mL C-Reactive Protein 2.7 H (<1.0) mg/dL Total Protein 7.5 (6.3-8.2) g/dL Albumin 4.5 (3.5-5.0) g/dL TSH 1.280 (0.465-4.680) mIU/L Urine Color Urine Appearance (Clear) Urine pH (5.0-8.0) Ur Specific [place] (1.001-1.035) Urine Protein (Negative) Urine Glucose (UA) (Negative) Urine Ketones (Negative) Urine Blood (Negative) Urine Nitrite (Negative) Urine Bilirubin (Negative) Urine Urobilinogen (<2.0) mg/dL Ur Leukocyte Esterase (Negative) Urine RBC (0-5) /hpf Urine WBC (0-5) /hpf Ur Squamous Epith Cells (0-4) /hpf Urine Mucus (None) /hpf Coronavirus (PCR) (Not Detectd) 04/13/22 04/13/22 04/13/22 Range/Units 19:51 19:51 21:02 WBC (3.8-10.6) k/uL RBC (3.80-5.40) m/uL Hgb (11.4-16.0) gm/dL Hct (34.0-46.0) % MCV (80.0-100.0) fL MCH (25.0-35.0) pg MCHC (31.0-37.0) g/dL RDW (11.5-15.5) % Plt Count (150-450) k/uL MPV Neutrophils % % Lymphocytes % % Monocytes % % Eosinophils % % Basophils % % Neutrophils # (1.3-7.7) k/uL Lymphocytes # (1.0-4.8) k/uL Monocytes # (0-1.0) k/uL Eosinophils # (0-0.7) k/uL Basophils # (0-0.2) k/uL ESR (0-20) mm/hr PT (9.0-12.0) sec INR (<1.2) APTT (22.0-30.0) sec D-Dimer (<0.60) mg/L FEU Sodium (137-145) mmol/L Potassium (3.5-5.1) mmol/L Chloride (98-107) mmol/L Carbon Dioxide (22-30) mmol/L Anion Gap mmol/L BUN (7-17) mg/dL Creatinine (0.52-1.04) mg/dL Est GFR (CKD-EPI)AfAm (>60 ml/min/1.73 sqM) Est GFR (CKD-EPI)NonAf (>60 ml/min/1.73 sqM) Glucose (74-99) mg/dL Plasma Lactic Acid Abdullahi 0.8 (0.7-2.0) mmol/L Calcium (8.4-10.2) mg/dL Magnesium (1.6-2.3) mg/dL Total Bilirubin (0.2-1.3) mg/dL AST (14-36) U/L ALT (4-34) U/L Alkaline Phosphatase (38-126) U/L Troponin I <0.012 (0.000-0.034) ng/mL C-Reactive Protein (<1.0) mg/dL Total Protein (6.3-8.2) g/dL Albumin (3.5-5.0) g/dL TSH (0.465-4.680) mIU/L Urine Color Light Yellow Urine Appearance Clear (Clear) Urine pH 5.5 (5.0-8.0) Ur Specific [place] 1.012 (1.001-1.035) Urine Protein Negative (Negative) Urine Glucose (UA) Negative (Negative) Urine Ketones 1+ H (Negative) Urine Blood Moderate H (Negative) Urine Nitrite Negative (Negative) Urine Bilirubin Negative (Negative) Urine Urobilinogen <2.0 (<2.0) mg/dL Ur Leukocyte Esterase Negative (Negative) Urine RBC 3 (0-5) /hpf Urine WBC <1 (0-5) /hpf Ur Squamous Epith Cells 1 (0-4) /hpf Urine Mucus Rare H (None) /hpf Coronavirus (PCR) (Not Detectd) 04/13/22 Range/Units 21:35 WBC (3.8-10.6) k/uL RBC (3.80-5.40) m/uL Hgb (11.4-16.0) gm/dL Hct (34.0-46.0) % MCV (80.0-100.0) fL MCH (25.0-35.0) pg MCHC (31.0-37.0) g/dL RDW (11.5-15.5) % Plt Count (150-450) k/uL MPV Neutrophils % % Lymphocytes % % Monocytes % % Eosinophils % % Basophils % % Neutrophils # (1.3-7.7) k/uL Lymphocytes # (1.0-4.8) k/uL Monocytes # (0-1.0) k/uL Eosinophils # (0-0.7) k/uL Basophils # (0-0.2) k/uL ESR (0-20) mm/hr PT (9.0-12.0) sec INR (<1.2) APTT (22.0-30.0) sec D-Dimer (<0.60) mg/L FEU Sodium (137-145) mmol/L Potassium (3.5-5.1) mmol/L Chloride (98-107) mmol/L Carbon Dioxide (22-30) mmol/L Anion Gap mmol/L BUN (7-17) mg/dL Creatinine (0.52-1.04) mg/dL Est GFR (CKD-EPI)AfAm (>60 ml/min/1.73 sqM) Est GFR (CKD-EPI)NonAf (>60 ml/min/1.73 sqM) Glucose (74-99) mg/dL Plasma Lactic Acid Abdullahi (0.7-2.0) mmol/L Calcium (8.4-10.2) mg/dL Magnesium (1.6-2.3) mg/dL Total Bilirubin (0.2-1.3) mg/dL AST (14-36) U/L ALT (4-34) U/L Alkaline Phosphatase (38-126) U/L Troponin I (0.000-0.034) ng/mL C-Reactive Protein (<1.0) mg/dL Total Protein (6.3-8.2) g/dL Albumin (3.5-5.0) g/dL TSH (0.465-4.680) mIU/L Urine Color Urine Appearance (Clear) Urine pH (5.0-8.0) Ur Specific [place] (1.001-1.035) Urine Protein (Negative) Urine Glucose (UA) (Negative) Urine Ketones (Negative) Urine Blood (Negative) Urine Nitrite (Negative) Urine Bilirubin (Negative) Urine Urobilinogen (<2.0) mg/dL Ur Leukocyte Esterase (Negative) Urine RBC (0-5) /hpf Urine WBC (0-5) /hpf Ur Squamous Epith Cells (0-4) /hpf Urine Mucus (None) /hpf Coronavirus (PCR) Detected A (Not Detectd) Disposition Clinical Impression: COVID-19, Generalized body aches, Arm pain, right Disposition: HOME SELF-CARE Condition: Stable Instructions (If sedation given, give patient instructions): Coronavirus Disease 2019 (COVID-19), Musculoskeletal Pain (ED) Additional Instructions: Follow-up with your regular physician as directed. Return to the ER immediately if any symptoms worsen, new symptoms arise, or any other problems develop. Also call your specialist and schedule follow-up appointment as well. SELF QUARANTINE DISCHARGE: As you are at risk for symptoms due to coronavirus, please stay home and stay away from others as much as possible. Please maintain social distance of 6 feet if possible. You should not return to work until at least 3 days (72 hours) have passed since recovery of symptoms. This defined as resolution of fever without the use of fever reducing medicines and improvement in respiratory symptoms (e.g,, cough, shortness of breath) Isolation can end at least 5 days after symptom onset and after fever ends for 24 hours (without the use of fever-reducing medication) and symptoms are improving, if these people can continue to properly wear a well-fitted mask around others for 5 more days after the 5-day isolation period. If you're still having symptoms at the end of 5 day period, isolate for an additional 5 days. More information about what to do if you are sick can be found on the CDC website at https://www. c.gov/coronavirus/2019-ncov/qx-xrm-dpg-sick/rhtsx-ieka-dcvx.html Expect the symptoms to last for 7-14 days from onset. Use acetaminophen (Tylenol) as needed for discomfort. You can take a maximum of 1 gram every 6 hours for discomfort, with your total dose in 24 hours not exceeding 4 grams. Be sure to maintain hydration. Drink continuous water and/or items high in vitamin C, such as orange juice and/or lemonade. Unless you have high blood pressure, you may consider Sudafed (which is ov [id number]) for nasal congestion. I would suggest that a short acting Sudafed rather than the 24 hour Sudafed. For a cough you may take Mucinex or Robitussin. Also consider the use of Vicks Vapor Rub or your chest when you sleep. Use a humidifier that is cleaned frequently, in the bedroom at night. For Nausea /Vomiting/Diarrhea associated with your Illness: o Small frequent sips of room temperature liquids. o Diet: [place] [employer] - If you are still experiencing discomfort and/or nausea please slowly advancing your diet using the BRAT Diet = bananas, rice, apples/apple sauce, toast. o With diarrhea avoid any dairy for 48 hours after symptoms resolved. o Continue with activity as tolerated. If your symptoms do get worse and you believe that the upper respiratory infection has developed into something else, such as pneumonia or severe dehydration, please return to the emergency department or follow-up with your primary care. But expect to be symptomatic for the days as indicated above Is patient prescribed a controlled substance at d/c from ED?: No Referrals: None,Stated [Primary Care Provider] - 1-2 days Time of Disposition: 22:53
[2022-04-13 20:05] LABS: Basophils % (A) 1 %; Eosinophils # (A) 0.1 k/uL (0-0.7); Eosinophils % (A) 2 %; HCT 41.6 % (34.0-46.0); HGB 14.2 gm/dL (11.4-16.0); Lymphocytes # (A) 0.4 k/uL (1.0-4.8); Lymphocytes % (A) 8 %; MCH 31.2 pg (25.0-35.0); MCHC 34.2 g/dL (31.0-37.0); MCV 91.2 fL (80.0-100.0); Mean Platelet Volume 7.1; Monocytes # (A) 0.3 k/uL (0-1.0); Monocytes % (A) 6 %; Neutrophils # (A) 4.3 k/uL (1.3-7.7); Neutrophils % (A) 82 %; Platelet Count 268 k/uL (150-450); RBC 4.57 m/uL (3.80-5.40); RDW 12.9 % (11.5-15.5); WBC 5.3 k/uL (3.8-10.6)
[2022-04-13 20:13] LABS: INR 0.9 (<1.2); Partial Thromboplastin Time 23.5 sec (22.0-30.0); Prothrombin Time 10.4 sec (9.0-12.0)
[2022-04-13 20:14] LABS: ALT 13 U/L (4-34); AST 21 U/L (14-36); African American GFR (CKD) >90 (>60 ml/min/1.73 sqM); Albumin 4.5 g/dL (3.5-5.0); Alkaline Phosphatase 56 U/L (38-126); Anion Gap 7 mmol/L; Blood Urea Nitrogen 10 mg/dL (7-17); C Reactive Protein 2.7 mg/dL (<1.0); Calcium 9.6 mg/dL (8.4-10.2); Carbon Dioxide 23 mmol/L (22-30); Chloride 105 mmol/L (98-107); Glucose 93 mg/dL (74-99); Magnesium 2.1 mg/dL (1.6-2.3); Non-African American GFR(CKD) 80 (>60 ml/min/1.73 sqM); Potassium 3.9 mmol/L (3.5-5.1); Sodium 135 mmol/L (137-145); Total Bilirubin 0.4 mg/dL (0.2-1.3); Total Protein 7.5 g/dL (6.3-8.2)
[2022-04-13 20:17] VITALS: TEMP 99.8
--- NOTE | 2022-04-13 20:51 | XR ---
EXAMINATION TYPE: XR chest 2V DATE OF EXAM: 04/13/2022 COMPARISON: 01/15/2019 HISTORY: Chest pain TECHNIQUE: 2 views FINDINGS: Heart and mediastinum are normal. Lungs are clear. Diaphragm is normal. Bony thorax appears normal. IMPRESSION: Normal chest. No change.
[2022-04-13 20:53] LABS: Erythrocyte Sedimentation Rate 11 mm/hr (0-20)
[2022-04-13 21:09] LABS: Appearance,Urine Clear (Clear); Bilirubin,Urine Negative (Negative); Blood,Urine Moderate (Negative); Color,Urine Light Yellow; Glucose,Urine (UA) Negative (Negative); Ketones,Urine 1+ (Negative); Leukocyte Esterase,Urine Negative (Negative); Mucus,Urine Rare /hpf; Nitrite,Urine Negative (Negative); PH, Urine 5.5 (5.0-8.0); Protein,Urine Negative (Negative); RBC,Urine 3 /hpf (0-5); Specific Gravity,Urine 1.012 (1.001-1.035); Squamous Epithelial Cell,Urine 1 /hpf (0-4); Urobilinogen,Urine <2.0 mg/dL (<2.0); WBC,Urine <1 /hpf (0-5)
--- NOTE | 2022-04-13 21:13 | US ---
EXAMINATION TYPE: US venous doppler duplex UE RT DATE OF EXAM: 04/13/2022 COMPARISON: NONE CLINICAL HISTORY: Right arm pain. Pt states right arm pain, pt states h/o clot within right arm due t o IV contrast for MRI, pt not on blood thinners SIDE PERFORMED: Right Right Arm: Negative for DVT or SVT IMPRESSION: No evidence of deep vein thrombosis in the right arm.
--- NOTE | 2022-04-13 22:14 | CT ---
EXAMINATION TYPE: CT angio chest DATE OF EXAM: 04/13/2022 COMPARISON: None HISTORY: Chest wall pain, elevated d-dimer, recent blood clot in Rt Arm CT DLP: 516.8 mGycm Automated exposure control for dose reduction was used. CONTRAST: Performed with IV Contrast, patient injected with 75 mL of Isovue 370. There are 3-D post processed images. The lungs are clear of infiltrate. No pleural effusion or pneumothorax. Heart size is normal. No zhang cardial effusion. Sternum is intact. The thoracic spine is intact. No compression fracture. Upper abdominal soft tissue s are intact. There is no mediastinal adenopathy. There are no hilar masses. Heart size is normal. No pericardial e ffusion. There is normal contrast opacification of the pulmonary arteries. There are no filling defects. The t horacic aorta is intact. No aneurysm or dissection. IMPRESSION: Negative exam. No evidence of pulmonary embolism.
[2022-04-13 23:40] VITALS: BP 137/83; PULSE 85; RESP 18
== END 2022-04-13 23:39 | disposition home or self-care (01) ==
LOC: EC 15:41
DX: U07.1 COVID-19 (principal); M79.601 Pain in right arm
CPT/HCPCS: 36415; 93005; 85379; 80053; 85652; 84443; 83605; 83735; 84484; 85025; 85610; 85730; 86140; 81001; 87635; 71046; 93971; 71275; 99284; 96374; 96375; 96361 ×4; J2270; J2405; Q9967

== ENCOUNTER → 2022-09-21 | Outpatient (CLI) | payer OTHER ==
[2022-09-21 13:17] LABS: INR 0.9 (<1.2); Prothrombin Time 10.1 sec (9.0-12.0)
[2022-09-21 18:11] LABS: Basophils # (A) 0.03 X 10*3/uL (0.00-0.10); Basophils % (A) 0.8 %; Eosinophils # (A) 0.08 X 10*3/uL (0.04-0.35); Eosinophils % (A) 2.2 %; HCT 42.8 % (37.2-46.3); HGB 14.2 g/dL (12.0-15.0); Immature Grans, Automated 0.3 %; Lymphocytes # (A) 1.06 X 10*3/uL (0.90-5.00); Lymphocytes % (A) 28.5 %; MCH 30.8 pg (27.0-32.0); MCHC 33.2 g/dL (32.0-37.0); MCV 92.8 fL (80.0-97.0); Mean Platelet Volume 9.8 fL (9.5-12.2); Monocytes # (A) 0.26 X 10*3/uL (0.20-1.00); NRBC Per 100 WBC 0 /100 WBCS (0.0-0.0); Neutrophils # (A) 2.28 X 10*3/uL (1.80-7.70); Neutrophils % (A) 61.2 %; Platelet Count 320 X 10*3/uL (140-440); RBC 4.61 X 10*6/uL (4.10-5.20); RDW 12.4 % (11.5-14.5); WBC 3.72 X 10*3/uL (4.50-10.00)
[2022-09-21 18:28] LABS: Rheumatoid Factor, Qnt <10 IU/mL (0-15)
[2022-09-21 19:11] LABS: Erythrocyte Sedimentation Rate 16 mm/Hr (0-20)
[2022-09-21 19:35] LABS: Cardiolipin Ab IgG Interp NEGATIVE (NEGATIVE); Cardiolipin IgA Antibody <2.0 U/mL
[2022-09-21 19:47] LABS: Cardiolipin Ab IgM Interp NEGATIVE (NEGATIVE); Cardiolipin IgM Antibody <1.5 U/mL
[2022-09-22 11:22] LABS: HLA B27 NEGATIVE
[2022-09-24 10:06] LABS: Angiotensin-1 Converting Enz. 32 U/L (8-52)
[2022-09-24 12:54] LABS: Lyme IgG/IgM 0.83 Index
[2022-09-24 13:23] LABS: APTT 41 Sec(s) (<43); Dilute Russell Viper Venom 38 Sec(s) (<44)
[2022-09-24 15:03] LABS: C-ANCA <1:20 Titer (<1:20)
== END | disposition home or self-care (01) ==
LOC: LABWHC1 10:30
PROVIDERS: ATTEND Ophthalmology
DX: D68.9 Coagulation defect, unspecified (principal)
CPT/HCPCS: 36415; 81241; 82164; 85025; 85300; 85306; 85549; 85610; 85613; 85652; 85730; 86038; 86140; 86147; 86160; 86162; 86255; 86431; 86618; 86800; 86812

== ENCOUNTER → 2022-10-05 | Outpatient (CLI) | payer OTHER ==
--- NOTE | 2022-10-08 08:07 | MR ---
EXAMINATION TYPE: MR shoulder RT wo con DATE OF EXAM: 10/05/2022 COMPARISON: None. HISTORY: R shoulder pain for months with difficulty raising arm overhead, rule out rotator cuff tear. Primary osteoarthritis and impingement syndrome. History of mixed connective tissue disorder. TECHNIQUE: Multiplanar, multisequence imaging of the right shoulder is performed without contrast. FINDINGS: Rotator Cuff: Increased signal distal infraspinatus tendon without tear. Supraspinatus tendon appears within normal limits. Subscapularis tendon intact. Rotator cuff muscle bulk maintained. Acromioclavicular Joint: Advanced narrowing and spurring along with capsular hypertrophy at the acrom ioclavicular joint. There is diminished T1 and increased T2 signal at this level suggesting active in flammation with some surrounding fluid. Loss of underlying fat plane noted. Glenohumeral Joint: Small 2 borderline moderate size joint effusion. No significant spurring. Labrum: The labrum appears grossly intact given limitation of non-arthrogram study. Biceps Tendon: The long head of biceps is in normal location within bicipital groove. Bone marrow signal: No focal abnormal marrow signal is appreciated. Other: No additional significant abnormality is appreciated. IMPRESSION: 1. Tendinopathy distal infraspinatus tendon. No rotator cuff tear is evident. 2. Advanced AC joint arthropathy and inflammatory change with suggestion of underlying impingement.
== END | disposition home or self-care (01) ==
LOC: RADMRIMAIN 07:02
PROVIDERS: ATTEND Orthopaedic Surgery Sports Medicine
DX: M12.811 Other specific arthropathies, not elsewhere classified, right shoulder (principal)

== ENCOUNTER → 2022-11-27 | Outpatient (CLI) | payer OTHER ==
--- NOTE | 2022-11-28 19:33 | MM ---
Reason for Exam: Screening (asymptomatic). Last mammogram was performed 3 year(s) and 11 month(s) ago. Patient History: Menarche at age 10. First Full-Term at age 19. Premenopausal. Hormonal Contraceptives, from age 12 until age 42. Risk Values: Amanda 5 year model risk: 0.7%. NCI Lifetime model risk: 8.7%. Prior Study Comparison: 10/18/2015 Bilateral Diagnostic Mammogram, [facility]. 12/12/2018 Bilateral Screening Mammogram, [facility]. Tissue Density: The breast tissue is heterogeneously dense. This may lower the sensitivity of mammography. Findings: Analyzed By CAD. Pattern appears symmetrical and stable. No suspicious groups of microcalcifications, spiculated or lobular masses, architectural distortion or other secondary signs of malignancy are mammographically apparent. Overall Assessment: Benign, BI-RAD 2 Management: Screening Mammogram of both breasts in 1 year. A negative mammogram report should not preclude additional follow up of suspicious palpable abnormalities. Patient should continue monthly self breast exam. A clinical breast exam by your physician is recommended on an annual basis and results should be correlated with mammographic findings. Electronically signed and approved by: Mango Aparicio D.O. Radiologis
== END | disposition home or self-care (01) ==
LOC: RADMAMWWP 16:36
PROVIDERS: ATTEND Obstetrics & Gynecology Obstetrics
DX: Z12.31 Encounter for screening mammogram for malignant neoplasm of breast (principal)
CPT/HCPCS: 77063; 77067

== ENCOUNTER → 2023-03-28 | Outpatient (CLI) | payer OTHER ==
--- NOTE | 2023-03-28 08:49 | MR ---
MRI CERVICAL SPINE: CLINICAL HISTORY: Headache with Neck pain, RUE pain/numbness for a few months, injured in fall Feb. 2 023. Cervicalgia and cervical region radiculopathy per order. TECHNIQUE: Multiplanar, multisequence imaging of the cervical spine is performed without IV contrast. COMPARISON: CT cervical spine December 28, 2022 FINDINGS: Sagittal images of the cervical spine show the craniocervical junction to remain within nor mal limits. The cervical and upper thoracic spinal cord is normal in course, caliber, and signal. V ertebral alignment is stable and satisfactory. The vertebral body and intravertebral disk heights re main normal. The bone marrow signal intensity is within normal limits. Axial images show C2-C3 and C3-C4 levels to appear within normal limits. Axial images at C4-C5 level show tiny left paracentral disc protrusion minimally effacing anterior th ecal sac. Bilateral neural foramina are patent. Axial images at C5-C6 through the C7-T1 levels appear within normal limits. IMPRESSION: Tiny posterior disc herniation C4-C5 level otherwise unremarkable study.
== END | disposition home or self-care (01) ==
LOC: RADMRIMAIN 07:20
PROVIDERS: ATTEND Orthopaedic Surgery Sports Medicine
DX: M50.121 Cervical disc disorder at C4-C5 level with radiculopathy (principal)
CPT/HCPCS: 72141

== ENCOUNTER → 2024-10-27 | Outpatient (CLI) | payer OTHER ==
--- NOTE | 2024-10-27 14:34 | MR ---
EXAMINATION TYPE: MR knee LT wo con DATE OF EXAM: 10/27/2024 2:13 PM COMPARISON: No radiographic correlation available CLINICAL INDICATION: Female, 44 years old with history of M84.369A STRESS FX M25.562 L KNEE PAIN, Lef t knee pain, injury 6 mos ago. TECHNIQUE: Multiplanar, multisequence imaging of the left knee is performed without IV contrast. FINDINGS: The ACL is intact. There is intrinsic increased signal within the PCL which measures at the upper limits of normal in th ickness at 6 mm. The MCL and LCL complex are intact. There is some degenerative signal involving the body of the medial meniscus without discrete tear. The lateral meniscus is intact. Bicompartmental articular cartilage is maintained. There is moderate focal cartilage loss along the medial trochlear facet and additional moderate irreg ular cartilage loss along the superior third aspect of the patella and additional diffuse cartilage t hinning along the lateral patellar facet. Some associated degenerative subchondral cystic change on b oth sides of the joint. Mild intermediate signal at the quadriceps insertion and at the deep fibers of the patellar tendon or igin suggesting mild tendinosis. Extensor mechanism otherwise intact. Focal edema suprapatellar fat pad. Trace, physiologic joint fluid. No Francis's cyst. Normal popliteal artery anatomy and muscle bulk. No suspicious bone marrow replacement. Some patchy r ed marrow hyperplasia which may be seen with anemia, obesity, smoking, chronic disease. IMPRESSION: 1. Correlate for possible grade 1 or grade 2 PCL sprain. 2. Degenerative signal within the body of the medial meniscus without discrete meniscal tear. 3. 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 4. Edema within the suprapatellar fat pad is nonspecific but can be seen in the setting of fat pad im pingement syndrome. [facility], , 10/27/2024 2:31 PM
--- NOTE | 2024-10-27 15:05 | MR ---
EXAMINATION TYPE: MR tib fib LT wo con DATE OF EXAM: 10/27/2024 2:41 PM COMPARISON: No radiographic correlation available CLINICAL INDICATION: Female, 44 years old with history of M84.369A STRESS FX M25.562 L KNEE PAIN, Lef t lower leg pain, injury 6 mos. ago. TECHNIQUE: Multiplanar, multisequence images of the left tibia and fibula were obtained without IV co ntrast. Axial and coronal sequences of the contralateral right tibia/fibula were obtained for compari son purposes. FINDINGS: Incidental type II accessory navicular right hindfoot. No acute or healing fracture is seen. Some nonspecific edema overlying the anteromedial mid to distal tibial cortex appears symmetric side to side Otherwise, no significant soft tissue abnormality is seen. IMPRESSION: 1. No acute or healing fracture is seen. 2. Some edema overlying the anteromedial aspect of the mid to distal tibial cortex appears symmetric side to side. Query any symptoms of brar splints. 3. Left knee reported separately. [facility], , 10/27/2024 3:02 PM
== END | disposition home or self-care (01) ==
LOC: RADMRIMAIN 13:32
PROVIDERS: ATTEND Orthopaedic Surgery
DX: M84.369A Stress fracture, unspecified tibia and fibula, initial encounter for fracture (principal); S83.209A Unspecified tear of unspecified meniscus, current injury, unspecified knee, initial encounter; M17.12 Unilateral primary osteoarthritis, left knee; M25.562 Pain in left knee; M79.662 Pain in left lower leg; R60.0 Localized edema